=== PATIENT | male | born 1960 | race Hispanic/Latino ===

== ENCOUNTER 2017-08-31 09:00 | Outpatient (CLI) | payer OTHER ==
[2017-08-31] MEDS ORDERED: PROVENTIL IH ONE (10:01)
== END 2017-08-31 09:01 | disposition home or self-care (01) ==
LOC: PF 09:00
PROVIDERS: ATTEND Internal Medicine
DX: J44.9 Chronic obstructive pulmonary disease, unspecified (principal); F17.200 Nicotine dependence, unspecified, uncomplicated
CPT/HCPCS: 94060; 94640; 94729

== ENCOUNTER 2019-07-26 16:30 | Outpatient (CLI) | payer MEDICAID ==
--- NOTE | 2019-07-26 18:00 | XRay Report ---
RIGHT SHOULDER 3 VIEW(S) INDICATION / CLINICAL INFORMATION: IMPINGEMENT SYNDROME OF RIGHT SHOULDER COMPARISON: None available. FINDINGS: BONES / JOINT(S): No acute fracture or subluxation. Moderate degree of degenerative change at the AC joint. SOFT TISSUES: No significant abnormality. Signer Name: Jadon Paul MD Signed: 07/26/2019 5:55 PM Workstation Name: [id number]
== END 2019-07-26 16:31 | disposition home or self-care (01) ==
LOC: XRAY 16:30
PROVIDERS: ATTEND Orthopaedic Surgery
DX: M19.011 Primary osteoarthritis, right shoulder (principal); M75.41 Impingement syndrome of right shoulder

== ENCOUNTER 2019-09-26 09:49 | Outpatient (CLI) | payer MEDICARE ==
--- NOTE | 2019-09-26 11:29 | Magnetic Resonance Report ---
MRI right knee without contrast INDICATION: MAIN: M25.561 PAIN IN RIGHT KNEE & SWELLING, RT SHOULDER PAIN & LIMITED ROM. COMPARISON: None FINDINGS: There is mild patellofemoral chondromalacia and also mild degenerative signal within the m enisci. Otherwise, no discrete meniscal tear identified. Normal alignment. No significant joint effus ion or popliteal fossa cyst. The collateral ligaments, cruciate ligaments, and extensor mechanism are all intact. There is very mild edema in the fat interposed between the anterior aspect of the lateral femoral con dyle and posterior to the lateral aspect of the patellar tendon. IMPRESSION: 1. Mild anterior knee soft tissue edema as outlined above can be seen with patellar tendon lateral fe moral condyle friction syndrome. 2. Otherwise largely unremarkable exam. Signer Name: Corky Javed MD Signed: 09/26/2019 11:25 AM Workstation Name: [id number]
--- NOTE | 2019-09-26 11:32 | Magnetic Resonance Report ---
MRI right shoulder without contrast INDICATION: MAIN: M75.111- Incomplete rotator cuff tear or rupture of right shoulder, PAIN & LIMITED RANGE OF MOTION. COMPARISON: Right shoulder radiographs from 07/26/2019 FINDINGS: There is moderate acromioclavicular and mild glenohumeral degenerative arthrosis with no a cute osseous abnormality or malalignment. There is mild intermediate fluid signal within the supraspinatus tendon involving the anterior fibers consistent with tendinosis. No discrete tendon tear identified. The biceps tendon is intact. Mild labral fraying is present, especially along the superior labrum near the biceps anchor. IMPRESSION: Degenerative changes as above including labral fraying most notably seen superiorly. Als o mild superimposed supraspinatus tendinosis. Signer Name: Corky Javed MD Signed: 09/26/2019 11:27 AM Workstation Name: [id number]
== END 2019-09-26 09:50 | disposition home or self-care (01) ==
LOC: MRI 09:49
PROVIDERS: ATTEND Orthopaedic Surgery
DX: M25.561 Pain in right knee (principal); M75.111 Incomplete rotator cuff tear or rupture of right shoulder, not specified as traumatic; M17.11 Unilateral primary osteoarthritis, right knee; M19.011 Primary osteoarthritis, right shoulder; M77.9 Enthesopathy, unspecified; M22.41 Chondromalacia patellae, right knee
CPT/HCPCS: 73721

== ENCOUNTER 2021-05-15 11:52 | Outpatient (CLI) | payer MEDICARE ==
--- NOTE | 2021-05-15 13:50 | Magnetic Resonance Report ---
MRI cervical spine without contrast INDICATION: Right shoulder pain TECHNIQUE: Axial and sagittal images FINDINGS: Alignment appears normal. Endplate changes are seen throughout. The craniocervical junction appears normal. C2-C3: Disc desiccation with posterior disc osteophyte/herniation advanced facet hypertrophy. There i s severe canal narrowing and cord compression. Canal measures 5 mm. C3-C4: Disc desiccation with disc osteophyte and uncovertebral degenerative change. Moderate left and [id number] right neuroforaminal narrowing. C4-C5: Endplate change and disc desiccation. Posterior disc osteophyte. Severe bilateral neuroforamin al narrowing with severe canal narrowing and cord compression. There may be some mild myelomalacia in the cord. C5-C6: Disc desiccation with disc osteophyte asymmetric to the right. [id number] left and moder ate to severe right neuroforaminal narrowing. C6-C7: Disc desiccation with disc osteophyte and uncovertebral degenerative change. Moderate canal na rrowing. Moderate to severe bilateral neuroforaminal narrowing. C7-T1: Endplate change with disc desiccation. Disc osteophyte asymmetric to the right with severe rig ht and moderate left neuroforaminal narrowing. IMPRESSION: Multilevel discogenic degenerative change. Canal and cord compression seen at several levels. Questio nable myelomalacia in the cord at C4-C5. Please see above level by level description Signer Name: Jay Garrido MD Signed: 05/15/2021 1:45 PM Workstation Name: [id number]
== END 2021-05-15 11:53 | disposition home or self-care (01) ==
LOC: MRI 11:52
PROVIDERS: ATTEND Orthopaedic Surgery
DX: M50.323 Other cervical disc degeneration at C6-C7 level (principal); M50.322 Other cervical disc degeneration at C5-C6 level; M50.321 Other cervical disc degeneration at C4-C5 level; M50.31 Other cervical disc degeneration, high cervical region; M45.2 Ankylosing spondylitis of cervical region; M50.33 Other cervical disc degeneration, cervicothoracic region; M25.511 Pain in right shoulder; M75.41 Impingement syndrome of right shoulder
CPT/HCPCS: 72141